=== PATIENT | female | born 1990 | race Caucasian/White ===

== ENCOUNTER 2018-05-25 20:33 | Emergency (ER) | payer SELFPAY ==
[~2018-05-25] VITALS: Ht 160 cm; Wt 54.4 kg
--- NOTE | 2018-05-25 20:33 | NUR ---
PT BIB [facility], PREBOOK. TAKEN TO CHAIR E
[2018-05-25 20:35] VITALS: BP 126/86
--- NOTE | 2018-05-25 20:57 | NUR ---
Vibha cox in ED - 05/25/18 at [address] Leos evaluating patient
--- NOTE | 2018-05-25 21:11 | NUR ---
Dr. Leos evaluating patient
[2018-05-25 21:25] VITALS: BP 118/74
--- NOTE | 2018-05-25 21:25 | NUR ---
Patient discharged with v/s stable. Written and verbal after care instructions given and explained. Patient verbalized understanding. Police with in custody. All questions addressed prior to discharge. Advised to follow up with PMD.
== END 2018-05-25 21:25 ==
LOC: MED 20:33
DX: F43.9 Reaction to severe stress, unspecified (principal); Z02.89 Encounter for other administrative examinations; V89.2XXA Person injured in unspecified motor-vehicle accident, traffic, initial encounter; Y93.89 Activity, other specified; Y92.89 Other specified places as the place of occurrence of the external cause; Y99.8 Other external cause status
CPT/HCPCS: 99283